=== PATIENT | female | born 1975 | race Caucasian/White ===

== ENCOUNTER 2016-06-27 18:30 | Emergency (ER) | payer OTHER ==
[2016-06-27] MEDS ORDERED: SODIUM CHLORIDE 0.9% 1,000 ML IV ONE (21:00)
[2016-06-27] MEDS ORDERED: POTASSIUM BICARB 25 MEQ TABLET PO STA (21:47)
[2016-06-27] MEDS ORDERED: POTASSIUM BICARB 25 MEQ TABLET PO ONE (21:50)
== END 2016-06-27 23:13 | disposition home or self-care (01) ==
DX: E87.6 Hypokalemia (principal); D64.9 Anemia, unspecified; R07.9 Chest pain, unspecified; R03.0 Elevated blood-pressure reading, without diagnosis of hypertension
CPT/HCPCS: 36415; 71020; 80053; 81003; 81025; 83690; 84484; 85025; 93005; 93010; 99284; 99285; A9270

== ENCOUNTER 2016-09-27 22:48 | Emergency (ER) | payer OTHER ==
[2016-09-27 23:10] LABS: BILIRUBIN,URINE NEGATIVE (NEGATIVE)
[2016-09-27 23:11] LABS: UA w/ MICROSCOPIC CHARGE YES
[2016-09-27 23:17] LABS: UR CULTURE IF IND INDICATED
--- NOTE | 2016-09-28 01:49 | ED Physician Documentation ---
PD HPI FEMALE - Stated complaint Stated Complaint: BACK PX/FEMALE - Chief complaint Chief Complaint: UTI - History obtained from History obtained from: Patient - History of Present Illness Timing - onset: Enter time (16:00), Today Timing - details: Abrupt onset Associated symptoms: Back pain. No: Fever Contributing factors: No: Similar symptoms before: Diagnosis (UTI) Recently seen: Not recently seen - Additional information Additional information: c/o urinary frequency, burning dysuria, right flank and right back pain Review of Systems Constitutional: reports: Reviewed and negative GI: denies: Abdominal Pain, Nausea, Vomiting : reports: Dysuria, Frequency. 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 - Present Medications Home Medications: Ambulatory Orders Medication Instructions Recorded Confirmed Ferrous Sulfate [Iron Supplement] 2 tab ORAL DAILY 09/18/15 09/27/16 Progesterone,Micronized 09/27/16 [Progesterone Micronized] Nitrofurantoin Monohyd/M-Cryst 100 mg PO BID #9 capsule 09/28/16 [Macrobid 100 mg Capsule] Phenazopyridine [Pyridium] 200 mg PO TID 3 Days 09/28/16 - Allergies Allergies/Adverse Reactions: Allergies Allergy/AdvReac Type Severity Reaction Status Date / Time Penicillins Allergy Hives Verified 09/27/16 22:56 - Social History Does the pt smoke?: No Smoking Status: Never smoker Does the pt drink ETOH?: Yes Does the pt have substance abuse?: No - Immunizations Immunizations are current?: Yes - POLST Patient has POLST: No PD ED PE NORMAL - Vitals Vital signs reviewed: Yes - General General: Alert and oriented X 3, No acute distress, Well developed/nourished - Abdomen Abdomen: Soft, Non tender - Back Back: No CVA TTP - Derm Derm: Normal color, Warm and dry, No rash Results - Vitals Vitals: Vital Signs - 24 hr 09/27/16 09/28/16 09/28/16 22:52 00:41 02:11 Temperature 36.5 C Heart Rate 70 63 64 Respiratory 16 17 16 Rate Blood Pressure 119/79 110/67 110/60 O2 Saturation 100 98 98 Oxygen O2 Source Room air - Labs Labs: Microbiology 09/27/16 23:00 Urine Culture - Preliminary Urine,Clean Catch No growth Laboratory Tests 09/27/16 23:00 Urine Color YELLOW Urine Clarity CLEAR Urine pH 6.0 Ur Specific [place] <=1.005 Urine Protein NEGATIVE Urine Glucose (UA) NEGATIVE Urine Ketones NEGATIVE Urine Occult Blood NEGATIVE Urine Nitrite NEGATIVE Urine Bilirubin NEGATIVE Urine Urobilinogen 0.2 (NORMAL) Ur Leukocyte Esterase SMALL H Urine RBC 0-5 Urine WBC 6-10 H Ur Squamous Epith Cells FEW Squamous Urine Bacteria Few Ur Microscopic Review INDICATED Urine Culture Comments INDICATED PD MEDICAL DECISION MAKING - ED course Complexity details: reviewed results, considered differential, d/w patient Departure - Departure Disposition: 01 Home, Self Care Clinical Impression: Urinary tract infection Condition: Good Instructions: ED UTI Cystitis Female Follow-Up: CEFERINO Carreon [Provider Group] (3-4 days if symptoms persist) Prescriptions: Nitrofurantoin Monohyd/M-Cryst [Macrobid 100 mg Capsule] 100 mg PO BID #9 capsule Phenazopyridine [Pyridium] 200 mg PO TID 3 Days Discharge Date/Time: 09/28/16 02:17
[2016-09-28] MEDS ORDERED: NITROFURANTOIN MACRO 100 MG CAPSULE PO STA (01:58)
[2016-09-28] MEDS ORDERED: PHENAZOPYRIDINE 100 MG TABLET PO STA ×2 (01:58→02:01)
[2016-09-28] MEDS ORDERED: NITROFURANTOIN MACRO 100 MG CAPSULE PO ONE (02:05)
[2016-09-28] MEDS ORDERED: PHENAZOPYRIDINE 100 MG TABLET PO ONE ×3 (02:05→02:09)
[2016-09-28 02:16] VITALS: BP 110/60
== END 2016-09-28 02:17 | disposition home or self-care (01) ==
LOC: ED 22:48
DX: N39.0 Urinary tract infection, site not specified (principal)
CPT/HCPCS: 81001; 87086; 99283; A9270; 81003

== ENCOUNTER 2017-06-07 12:33 | Outpatient (CLI) | payer OTHER ==
--- NOTE | 2017-06-07 19:07 | MRI Report ---
EXAM: MRI LUMBAR SPINE WITHOUT CONTRAST EXAM DATE: 06/07/2017 01:23 PM. CLINICAL HISTORY: Low back pain. COMPARISON: None. TECHNIQUE: Multiplanar, multisequence T1-weighted and fluid-sensitive sequences of the lumbar spine f rom T12 to S1 without contrast. Other: None. FINDINGS: Spinal Cord: The conus terminates at L1. The conus medullaris and cauda equina are unremarkable. Alignment: Mild convex left curvature in the lower lumbar spine. No spondylolisthesis. Bone Marrow: Five [id number] lumbar vertebral bodies are assumed. No gross fracture or bone lesi on. Mild to moderate diskogenic edema at L5-S1 asymmetric to the left. Disk Levels/Facets: Disk desiccation at L2-L3 and L4-L5. Disk desiccation and minimal disk height los s at L5-S1. T12-L1: Unremarkable. L1-L2: Unremarkable. L2-L3: Small central disk protrusion with focal high-intensity zone. Minimal central canal stenosis. L3-L4: Unremarkable. L4-L5: Small broad-based disk bulge. Focal high-intensity zone in the right foraminal and far lateral region. Mild bilateral facet hypertrophy with effusions. No stenosis. L5-S1: Small broad-based disk bulge with a superimposed small left paracentral disk protrusion with f ocal high-intensity zone. Mild bilateral facet hypertrophy. Disk protrusion results in mass-effect on the traversing left S1 nerve root. Mild left neural foraminal stenosis. Musculature: No edema or fatty atrophy. Other: The partially visualized retroperitoneum is unremarkable. IMPRESSION: 1. Mild degenerative disk and facet changes in the lower lumbar spine. 2. Small disk bulge with small left paracentral disk protrusion at L5-S1. Disk protrusion displaces t he traversing left S1 nerve root. Mild left neural foraminal stenosis. 3. Small central disk protrusion with focal high-intensity zone at L2-L3 results in minimal central c anal stenosis. Comment: The following findings are so common in adults without low back pain that while we report th eir presence, they must be interpreted with caution and in the context of the clinical situation. (Re sean Lee et al, Spine 2001) Prevalence of findings in patients without low back pain: Disk degeneration (any evidence): 92% Disk desiccation/T2 signal loss: 83% Disk height loss: 56% Disk bulge: 64% Disk protrusion: 32% Annular tear/high intensity zone: 38% [facility] Referring Provider Line: [phone] SITE ID: [id number]
== END 2017-06-07 12:34 | disposition home or self-care (01) ==
LOC: DI 12:33
PROVIDERS: ATTEND Nurse Practitioner Family
DX: M51.36 Other intervertebral disc degeneration, lumbar region (principal); M51.26 Other intervertebral disc displacement, lumbar region; M47.896 Other spondylosis, lumbar region; M51.27 Other intervertebral disc displacement, lumbosacral region
CPT/HCPCS: 72148

== ENCOUNTER 2017-08-19 09:55 | Emergency (ER) | payer OTHER ==
--- NOTE | 2017-08-19 10:09 | ED Physician Documentation ---
PD HPI CHEST PAIN - Stated complaint Stated Complaint: CHEST TIGHTNESS/LUMP IN THROAT - Chief complaint Chief Complaint: General - History obtained from History obtained from: Patient - History of Present Illness Timing - onset: Enter time (429), Today Timing - onset during: Sleep Timing - duration: Hours Timing - details: Abrupt onset, Still present Quality: Tightness Location: Substernal Radiation: Left upper extremity Worsened by: Other (nothing) Associated symptoms: Feeling faint / dizzy. No: Shortness of air, Diaphoresis, Nausea, Vomiting, General Weakness, Palpitations, Cough Similar symptoms before: Diagnosis (atypical chest pain last year with panic) Recently seen: Not recently seen - Additional information Additional information: 42-year-old female who is about 1-1/2 months into a divorce has awoken at 430 this morning with acute substernal chest pain. She states that she felt there was some tightness and not pain associated with this. She denies sobbing or chest wall injury. Review of Systems Constitutional: denies: Fever Eyes: denies: Decreased vision Ears: denies: Ear pain Nose: denies: Rhinorrhea / runny nose, Congestion Throat: denies: Sore throat Cardiac: reports: Chest pain / pressure. 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, Tubal ligation - Present Medications Home Medications: Ambulatory Orders Medication Instructions Recorded Confirmed Ferrous Sulfate [Iron Supplement] 2 tab ORAL DAILY 09/18/15 09/27/16 Progesterone,Micronized 09/27/16 [Progesterone Micronized] Nitrofurantoin Monohyd/M-Cryst 100 mg PO BID #9 capsule 09/28/16 [Macrobid 100 mg Capsule] Phenazopyridine [Pyridium] 200 mg PO TID 3 Days tablet 09/28/16 Lorazepam [Ativan] 1 mg PO Q6HR PRN #15 tablet 08/19/17 - Allergies Allergies/Adverse Reactions: Allergies Allergy/AdvReac Type Severity Reaction Status Date / Time Penicillins Allergy Hives Verified 09/27/16 22:56 - Social History Does the pt smoke?: No Smoking Status: Never smoker Does the pt drink ETOH?: Yes Does the pt have substance abuse?: No - Immunizations Immunizations are current?: Yes - POLST Patient has POLST: No PD ED PE NORMAL - Vitals Vital signs reviewed: Yes (hypertensive mild) - General General: Alert and oriented X 3, No acute distress, Well developed/nourished - HEENT HEENT: Atraumatic, PERRL, EOMI - Neck Neck: Supple, no meningeal sign, No bony TTP - Cardiac Cardiac: RRR, No murmur - Respiratory Respiratory: No respiratory distress, Clear bilaterally, Other (minimal chest wall tenderness) - Abdomen Abdomen: Soft, Non tender - Back Back: No CVA TTP, No spinal TTP - Derm Derm: Normal color, Warm and dry, No rash - Extremities Extremities: No deformity, No edema - Neuro Neuro: Alert and oriented X 3, 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, No motor deficit, No sensory deficit, Normal speech Eye Opening: Spontaneous Motor: Obeys Commands Verbal: Oriented GCS Score: 15 - Psych Psych: Normal mood, Normal affect Results - Vitals Vitals: Vital Signs - 24 hr 08/19/17 10:00 Temperature 36.5 C Heart Rate 79 Respiratory 18 Rate Blood Pressure 132/82 H O2 Saturation 100 Oxygen O2 Source Room air - EKG (time done) 1004 Rate: Rate (enter#) (78) Rhythm: NSR Ischemia: Normal ST segments Compare to prior EKG: Unchanged from prior EKG (06-27-16) Computer interpretation: Agree with computer - Labs Labs: Laboratory Tests 08/19/17 08/19/17 08/19/17 10:12 10:12 10:12 WBC 5.9 RBC 4.69 Hgb 12.6 Hct 38.4 MCV 81.9 MCH 26.7 L MCHC 32.7 RDW 17.0 H Plt Count 326 MPV 7.4 L Neut # (Auto) 3.9 Lymph # (Auto) 1.5 [place] # (Auto) 0.3 Eos # (Auto) 0.1 Baso # (Auto) 0.1 Absolute Nucleated RBC 0.00 Nucleated RBC % 0.1 Sodium 138 Potassium 3.4 L Chloride 103 Carbon Dioxide 29 Anion Gap 6.0 BUN 10 Creatinine 0.7 Estimated GFR (MDRD) 93 Glucose 90 Calcium 9.3 Total Bilirubin 0.5 AST 27 ALT 28 Alkaline Phosphatase 55 Troponin I < 0.04 Total Protein 7.7 Albumin 4.1 Globulin 3.6 Albumin/Globulin Ratio 1.1 Lipase 35 - Rads (name of study) 2 veiw chest Radiology: Prelim report reviewed (Impression normal two-view chest radiography. No change from 06/27/2016.), EMP read indepedently, See rad report PD MEDICAL DECISION MAKING - ED course Complexity details: reviewed results, re-evaluated patient, considered differential, d/w patient ED course: 42-year-old female with chest tightness since 4:30 in the morning has an unremarkable physical examination electrocardiogram and blood work including negative troponin and unchanged electric cardiogram. She is undergoing significant amount of stress and I suspect her chest pain is related to this. - Sepsis Event Vital Signs: Vital Signs - 24 hr 08/19/17 10:00 Temperature 36.5 C Heart Rate 79 Respiratory 18 Rate Blood Pressure 132/82 H O2 Saturation 100 Oxygen O2 Source Room air Departure - Departure Disposition: 01 Home, Self Care Clinical Impression: Atypical chest pain Condition: Stable Instructions: ED Stress React, ED Chest Pain Atypical Unkn Cause Follow-Up: BLOSSOM LEARY [Primary Care Provider] - Prescriptions: Lorazepam [Ativan] 1 mg PO Q6HR PRN #15 tablet PRN Reason: Anxiety
[2017-08-19 10:16] LABS: BASOPHILS # (AUTO) 0.1 10^3/uL (0.0-0.1); BASOPHILS % (AUTO) 1.2 %; EOSINOPHILS # (AUTO) 0.1 10^3/uL (0.0-0.7); EOSINOPHILS % (AUTO) 1.7 %; HGB - HEMOGLOBIN 12.6 g/dL (12.0-16.0); LYMPHOCYTES # (AUTO) 1.5 10^3/uL (1.5-3.5); LYMPHOCYTES % (AUTO) 25.6 %; MEAN CORPUSCULAR HEMOGLOBIN 26.7 pg (27.0-31.0); MEAN CORPUSCULAR HGB CONC 32.7 g/dL (32.0-36.0); MEAN CORPUSCULAR VOLUME 81.9 fL (81.0-99.0); MEAN PLATELET VOLUME 7.4 fL (7.9-10.8); MONOCYTES # (AUTO) 0.3 10^3/uL (0.0-1.0); MONOCYTES % (AUTO) 5.8 %; NEUTROPHILS # (AUTO) 3.9 10^3/uL (1.5-6.6); NEUTROPHILS % (AUTO) 65.7 %; PLT - PLATELET COUNT 326 10^3/uL (130-450); RED BLOOD COUNT 4.69 10^6/uL (4.20-5.40); WHITE BLOOD COUNT 5.9 x10^3/uL (4.8-10.8)
[2017-08-19 10:32] LABS: ALBUMIN 4.1 g/dL (3.2-5.5); ALBUMIN/GLOBULIN RATIO 1.1 (1.0-2.2); BILIRUBIN,TOTAL 0.5 mg/dL (0.2-1.0); CALCIUM 9.3 mg/dL (8.5-10.3); CREATININE 0.7 mg/dL (0.4-1.0); TOTAL PROTEIN 7.7 g/dL (6.7-8.2)
--- NOTE | 2017-08-19 10:56 | XRAY Report ---
EXAM: CHEST RADIOGRAPHY 2 VIEWS EXAM DATE: 08/19/2017. CLINICAL HISTORY: Chest pain. COMPARISON: 06/27/2016. TECHNIQUE: PA and lateral views. FINDINGS: Lungs/Pleura: Normal vasculature. The lungs are clear. No pleural fluid or pneumothorax. Mediastinum: Normal cardiac and mediastinal contours. Bones: Normal. IMPRESSION: Normal 2-view chest radiography. No change from 06/27/2016. [facility] Referring Provider Line: [phone] SITE ID: [id number]
[2017-08-19 11:36] VITALS: BP 111/62
== END 2017-08-19 11:49 | disposition home or self-care (01) ==
LOC: ED 09:55
DX: R07.89 Other chest pain (principal); F41.9 Anxiety disorder, unspecified
CPT/HCPCS: 36415; 71046; 80053; 83690; 84484; 85025; 93005; 99283; 99284

== ENCOUNTER 2017-08-24 11:53 | Emergency (ER) | payer OTHER ==
[2017-08-24] MEDS ORDERED: IBUPROFEN 800 MG TABLET PO STA (12:35)
--- NOTE | 2017-08-24 12:46 | ED Physician Documentation ---
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 - Present Medications Home Medications: Ambulatory Orders Medication Instructions Recorded Confirmed Ferrous Sulfate [Iron Supplement] 2 tab ORAL DAILY 09/18/15 09/27/16 Progesterone,Micronized 09/27/16 [Progesterone Micronized] Lorazepam [Ativan] 1 mg PO Q6HR PRN #15 tablet 08/19/17 - Allergies Allergies/Adverse Reactions: Allergies Allergy/AdvReac Type Severity Reaction Status Date / Time Penicillins Allergy Hives Verified 08/24/17 11:58 - Social History Does the pt smoke?: No Smoking Status: Never smoker Does the pt drink ETOH?: Yes Does the pt have substance abuse?: No - Immunizations Immunizations are current?: Yes - POLST Patient has POLST: No PD ED PE NORMAL - Vitals Vital signs reviewed: Yes - Extremities Extremities: Other (R index distal phalange swollen and tender, 10% subungal, MSV intact) Results - Vitals Vitals: Vital Signs - 24 hr 08/24/17 11:57 Temperature 36.3 C L Heart Rate 69 Respiratory 16 Rate Blood Pressure 137/80 H O2 Saturation 100 Oxygen O2 Source Room air - Rads (name of study) fingers Radiology: See rad report (no fx) PD MEDICAL DECISION MAKING - Sepsis Event Vital Signs: Vital Signs - 24 hr 08/24/17 11:57 Temperature 36.3 C L Heart Rate 69 Respiratory 16 Rate Blood Pressure 137/80 H O2 Saturation 100 Oxygen O2 Source Room air Departure - Departure Disposition: 01 Home, Self Care Clinical Impression: Crushing injury of finger of right hand Condition: Good Instructions: ED Crush Injury Finger No Fx Follow-Up: BLOSSOM LEARY [Primary Care Provider] - Comments: Thankfully there is no fracture Wear the splint for comfort Ice and elevate and take motrin to decrease the swelling
--- NOTE | 2017-08-24 13:36 | XRAY Report ---
Procedure Date: 08/24/2017 Accession Number: [id number] / [id number] Procedure: XR - Finger(s) RT CPT Code: FULL RESULT: EXAM: RIGHT SECOND DIGIT RADIOGRAPHY EXAM DATE: 08/24/2017 01:15 PM. CLINICAL HISTORY: R index finger slammed in car door. COMPARISON: None. TECHNIQUE: 3 views. FINDINGS: Bones: Normal. No fracture or bone lesion. Joints: Normal. No subluxations. Soft Tissues: Normal. No soft tissue swelling. IMPRESSION: Normal digit radiography. [facility]
[2017-08-24 14:18] VITALS: BP 135/81
== END 2017-08-24 14:26 | disposition home or self-care (01) ==
LOC: ED 11:53
DX: S67.190A Crushing injury of right index finger, initial encounter (principal); W23.0XXA Caught, crushed, jammed, or pinched between moving objects, initial encounter
CPT/HCPCS: 73140; 99282; 99283; A9270

== ENCOUNTER 2018-01-25 20:14 | Emergency (ER) | payer OTHER ==
--- NOTE | 2018-01-25 21:04 | ED Physician Documentation ---
PD HPI CHEST PAIN - Stated complaint Stated Complaint: RAPID HEART RATE/DIZZY - Chief complaint Chief Complaint: Cardiac - History obtained from History obtained from: Patient - History of Present Illness Timing - onset: Chronic Timing - duration: Years Timing - details: Gradual onset, Intermittant Pain level max: 2 Pain level now: 0 Quality: Pressure Location: Left chest Improved by: Nothing Worsened by: Other Associated symptoms: Feeling faint / dizzy (Feeling dizzy but not faint: Vertigo). No: Shortness of air, Diaphoresis, Nausea, Vomiting (Stress) Similar symptoms before: Diagnosis Recently seen: Clinic - Additional information Additional information: 42-year-old female with history of intermittent palpitations the past 10-12 years associated with chest pressure here with complaint of fast heartbeat the past few days with Throat tightness and chest pressure and Today with dizziness described as room spinning like vertigo.Patient stated had seen her primary doctor last December and evaluated and was referred to a division head but has not received any appointment from the division head. Denies any trauma, travel, recent illness. 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 Review of Systems Ten Systems: 10 systems reviewed and negative Constitutional: denies: Fever Cardiac: reports: Chest pain / pressure (Chronic and constant), Palpitations (Intermittent for many years). denies: Calf pain Respiratory: denies: Dyspnea, Cough GI: denies: Nausea Musculoskeletal: denies: Back pain Neurologic: reports: Other (Dizziness like vertigo). 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 - Present Medications Home Medications: Ambulatory Orders Medication Instructions Recorded Confirmed Ferrous Sulfate [Iron Supplement] 2 tab ORAL DAILY 09/18/15 09/27/16 Progesterone,Micronized 09/27/16 [Progesterone Micronized] Lorazepam [Ativan] 1 mg PO Q6HR PRN #15 tablet 08/19/17 - Allergies Allergies/Adverse Reactions: Allergies Allergy/AdvReac Type Severity Reaction Status Date / Time Penicillins Allergy Hives Verified 08/24/17 11:58 - Social History Does the pt smoke?: No Smoking Status: Never smoker Does the pt drink ETOH?: Yes Does the pt have substance abuse?: No - Immunizations Immunizations are current?: Yes - POLST Patient has POLST: No PD ED PE NORMAL - Vitals Vital signs reviewed: Yes - General General: Alert and oriented X 3, No acute distress, Well developed/nourished - HEENT HEENT: Moist mucous membranes - Neck Neck: Supple, no meningeal sign, No adenopathy, Thyroid normal - Cardiac Cardiac: RRR, No murmur - Respiratory Respiratory: No respiratory distress, Clear bilaterally - Abdomen Abdomen: Normal bowel sounds, Soft, Non tender, Non distended - Back Back: No CVA TTP - Derm Derm: Normal color, Warm and dry - Extremities Extremities: No deformity, No tenderness to palpate, Normal ROM s pain - Neuro Neuro: Alert and oriented X 3, Normal speech - Psych Psych: Normal mood, Normal affect Results - Vitals Vitals: Vital Signs - 24 hr 01/25/18 01/25/18 01/25/18 20:28 20:44 22:04 Temperature 36.8 C Heart Rate 92 86 78 Respiratory 18 11 L 17 Rate Blood Pressure 128/92 H 123/79 120/79 O2 Saturation 100 100 100 01/25/18 01/25/18 01/25/18 22:10 22:36 22:45 Temperature Heart Rate 88 83 82 Respiratory 17 Rate Blood Pressure 118/86 H O2 Saturation 99 99 01/25/18 23:07 Temperature Heart Rate Respiratory 16 Rate Blood Pressure O2 Saturation Oxygen O2 Source Room air - EKG (time done) 2026 Rate: Rate (enter#) Rhythm: NSR [place]: Normal Intervals: Normal CT QRS: Normal Ischemia: Normal ST segments - Labs Labs: Laboratory Tests 01/25/18 01/25/18 01/25/18 21:10 21:10 21:10 WBC 6.8 RBC 4.55 Hgb 14.5 Hct 41.7 MCV 91.6 MCH 31.9 H MCHC 34.8 RDW 13.9 Plt Count 231 MPV 7.6 L Neut # (Auto) 4.0 Lymph # (Auto) 2.1 [place] # (Auto) 0.5 Eos # (Auto) 0.1 Baso # (Auto) 0.1 Absolute Nucleated RBC 0.00 Nucleated RBC % 0.0 Sodium 140 Potassium 3.6 Chloride 104 Carbon Dioxide 28 Anion Gap 8.0 BUN 11 Creatinine 0.7 Estimated GFR (MDRD) 93 Glucose 107 H Calcium 8.8 Total Bilirubin 0.5 AST 21 ALT 20 Alkaline Phosphatase 51 Troponin I < 0.04 Total Protein 7.3 Albumin 3.8 Globulin 3.5 Albumin/Globulin Ratio 1.1 Lipase 43 TSH 01/25/18 21:10 WBC RBC Hgb Hct MCV MCH MCHC RDW Plt Count MPV Neut # (Auto) Lymph # (Auto) [place] # (Auto) Eos # (Auto) Baso # (Auto) Absolute Nucleated RBC Nucleated RBC % Sodium Potassium Chloride Carbon Dioxide Anion Gap BUN Creatinine Estimated GFR (MDRD) Glucose Calcium Total Bilirubin AST ALT Alkaline Phosphatase Troponin I Total Protein Albumin Globulin Albumin/Globulin Ratio Lipase TSH 2.40 PD MEDICAL DECISION MAKING - ED course Complexity details: reviewed results, re-evaluated patient ([id number] will dress up and ready to go. Denies any palpitation or feeling dizzy. Denies chest pain or shortness of breath. Inform of test results. Instructed to follow-up with PCP and get a cardiology referral for Holter monitor, stress test and echocardiogram. If worse return to the emergency room.), considered differential (Hyperthyroid, ACS, pneumonia, PE, stress related palpitations. ACS is unlikely, heart score 0. PE is low probability: Wells score 0), d/w patient, d/w family Departure - Departure Disposition: 01 Home, Self Care Clinical Impression: Heart palpitations, Dizziness, Vertigo Condition: Stable Instructions: ED Dizziness UKO, ED Palpitations Comments: Follow-up with your primary doctor and get a referral to a division head for outpatient stress test, Holter monitor, and echocardiogram. If worse return to the emergency room. Discharge Date/Time: 01/25/18 23:07
[2018-01-25 21:17] LABS: BASOPHILS # (AUTO) 0.1 10^3/uL (0.0-0.1); BASOPHILS % (AUTO) 1.1 %; EOSINOPHILS # (AUTO) 0.1 10^3/uL (0.0-0.7); EOSINOPHILS % (AUTO) 1.4 %; HGB - HEMOGLOBIN 14.5 g/dL (12.0-16.0); LYMPHOCYTES # (AUTO) 2.1 10^3/uL (1.5-3.5); LYMPHOCYTES % (AUTO) 30.5 %; MEAN CORPUSCULAR HEMOGLOBIN 31.9 pg (27.0-31.0); MEAN CORPUSCULAR HGB CONC 34.8 g/dL (32.0-36.0); MEAN CORPUSCULAR VOLUME 91.6 fL (81.0-99.0); MEAN PLATELET VOLUME 7.6 fL (7.9-10.8); MONOCYTES # (AUTO) 0.5 10^3/uL (0.0-1.0); MONOCYTES % (AUTO) 7.8 %; NEUTROPHILS % (AUTO) 59.2 %; PLT - PLATELET COUNT 231 10^3/uL (130-450); RED BLOOD COUNT 4.55 10^6/uL (4.20-5.40); RED CELL DISTRIBUTION WIDTH 13.9 % (12.0-15.0); WHITE BLOOD COUNT 6.8 x10^3/uL (4.8-10.8)
[2018-01-25 21:29] LABS: ALBUMIN 3.8 g/dL (3.2-5.5); ALBUMIN/GLOBULIN RATIO 1.1 (1.0-2.2); BILIRUBIN,TOTAL 0.5 mg/dL (0.2-1.0); CALCIUM 8.8 mg/dL (8.5-10.3); CREATININE 0.7 mg/dL (0.4-1.0); TOTAL PROTEIN 7.3 g/dL (6.7-8.2)
--- NOTE | 2018-01-25 21:35 | XRAY Report ---
Reason: chest pain Procedure Date: 01/25/2018 Accession Number: [id number] / [id number] Procedure: XR - Chest 1 View X-Ray CPT Code: 99538 FULL RESULT: EXAM: CHEST RADIOGRAPHY EXAM DATE: 01/25/2018 09:11 PM. CLINICAL HISTORY: Chest pain. COMPARISON: CHEST 2 VIEW 08/19/2017 10:22 AM. TECHNIQUE: 1 view. FINDINGS: Lungs/Pleura: No focal opacities evident. No pleural effusion. No pneumothorax. Mediastinum: Within exam limitations, the cardiomediastinal contour is normal. Other: None. IMPRESSION: Normal single view chest. [facility]
[2018-01-25 23:00] VITALS: BP 118/86
== END 2018-01-25 23:07 | disposition home or self-care (01) ==
LOC: ED 20:14
DX: R00.2 Palpitations (principal); R42 Dizziness and giddiness
CPT/HCPCS: 36415; 71045; 80053; 83690; 84443; 84484; 85025; 93005; 99283; 99284

== ENCOUNTER 2018-08-24 08:25 | Outpatient (CLI) | payer OTHER ==
--- NOTE | 2018-08-24 18:59 | Ultrasound Report ---
Reason: RUQ PAIN Procedure Date: 08/24/2018 Accession Number: [id number] / [id number] Procedure: US - Abdomen Limited CPT Code: FULL RESULT: EXAM: ABDOMEN ULTRASOUND LIMITED, RIGHT UPPER QUADRANT. EXAM DATE: 08/24/2018 08:54 AM. CLINICAL HISTORY: Right upper quadrant pain for 2 months. COMPARISON: None. TECHNIQUE: Real-time scanning was performed with static images obtained. FINDINGS: Liver: Normal in size . Hyperechoic echotexture. 14.2 cm. Main portal vein flow: Hepatopetal. Gallbladder: Normal. No stones, wall thickening, or sonographic Mora's sign. Biliary System: CBD measures 2 mm. No intrahepatic or extrahepatic ductal dilatation. Other: The visualized pancreas is unremarkable. Mild right pelvocaliectasis. No free fluid. IMPRESSION: 1. Unremarkable gallbladder and ducts. 2. Hepatic steatosis. 3. Mild right pelvocaliectasis noted. [facility]
== END 2018-08-24 08:26 | disposition home or self-care (01) ==
LOC: DI 08:25
PROVIDERS: ATTEND Physician Assistant
DX: R10.11 Right upper quadrant pain (principal); K76.0 Fatty (change of) liver, not elsewhere classified; N13.30 Unspecified hydronephrosis
CPT/HCPCS: 76705

== ENCOUNTER 2018-09-01 08:12 | Outpatient (CLI) | payer OTHER ==
[2018-09-01 12:14] LABS: BASOPHILS # (AUTO) 0.1 10^3/uL (0.0-0.1); BASOPHILS % (AUTO) 1.1 %; EOSINOPHILS # (AUTO) 0.1 10^3/uL (0.0-0.7); HGB - HEMOGLOBIN 10.7 g/dL (12.0-16.0); LYMPHOCYTES # (AUTO) 1.4 10^3/uL (1.5-3.5); MEAN CORPUSCULAR HEMOGLOBIN 24.4 pg (27.0-31.0); MEAN CORPUSCULAR HGB CONC 29.6 g/dL (32.0-36.0); MEAN CORPUSCULAR VOLUME 82.2 fL (81.0-99.0); MONOCYTES # (AUTO) 0.3 10^3/uL (0.0-1.0); MONOCYTES % (AUTO) 7.1 %; NEUTROPHILS # (AUTO) 2.7 10^3/uL (1.5-6.6); NEUTROPHILS % (AUTO) 59.6 %; PLT - PLATELET COUNT 348 10^3/uL (130-450); RED BLOOD COUNT 4.39 10^6/uL (4.20-5.40); RED CELL DISTRIBUTION WIDTH 14.3 % (12.0-15.0); WHITE BLOOD COUNT 4.5 x10^3/uL (4.8-10.8)
[2018-09-01 12:32] LABS: HB2 TOTAL 11.1 g/dL; HEMOGLOBIN A1C 0.42 g/dL; HEMOGLOBIN A1C % 5.6 % (4.6-6.2)
[2018-09-01 12:50] LABS: ALBUMIN 3.7 g/dL (3.2-5.5); ALBUMIN/GLOBULIN RATIO 1.2 (1.0-2.2); ALKALINE PHOSPHATASE 52 IU/L (42-121); ALT ALANINE AMINOTRANSFERASE 20 IU/L (10-60); AST ASPARTATE AMINOTRANSFERASE 20 IU/L (10-42); BILIRUBIN,TOTAL 0.5 mg/dL (0.2-1.0); BUN - BLOOD UREA NITROGEN 9 mg/dL (6-20); CALCIUM 8.8 mg/dL (8.5-10.3); CARBON DIOXIDE - CO2 27 mmol/L (21-32); CHLORIDE 105 mmol/L (101-111); CHOL/HDL RATIO 4.1 (<4.4); CHOLESTEROL 178 mg/dL; CREATININE 0.7 mg/dL (0.4-1.0); GFR - MDRD 92 (>89); GLUCOSE 101 mg/dL (70-100); HDL CHOLESTEROL 43 mg/dL; LDL CHOLESTEROL,CALCULATED 113 mg/dL; LDL/HDL RATIO 2.6 (<4.4); SODIUM 139 mmol/L (135-145); TOTAL PROTEIN 6.9 g/dL (6.7-8.2); VLDL CHOLESTEROL 22 mg/dL
[2018-09-02 15:10] LABS: % IRON SATURATION 4 % (20-50); IRON 15 ug/dL (28-170); TOTAL IRON BINDING CAPACITY 403 ug/dL (250-450); TRANSFERRIN 288 mg/dL (192-382)
== END 2018-09-01 08:13 | disposition home or self-care (01) ==
LOC: LAB.WCP 08:12
PROVIDERS: ATTEND Physician Assistant
DX: Z00.00 Encounter for general adult medical examination without abnormal findings (principal); Z13.220 Encounter for screening for lipoid disorders; Z13.1 Encounter for screening for diabetes mellitus; Z13.29 Encounter for screening for other suspected endocrine disorder; R68.89 Other general symptoms and signs
CPT/HCPCS: 36415; 80053; 80061; 83036; 83540; 83721; 84443; 84466; 85025

== ENCOUNTER 2018-09-12 14:15 | Outpatient (CLI) | payer OTHER ==
[2018-09-12] MEDS ORDERED: IOVERSOL 320 100 ML VIAL IVP ONE ×2 (14:56→15:36)
[2018-09-12] MEDS ORDERED: IOVERSOL 320 50 ML VIAL ONE (14:56)
[2018-09-12] MEDS ORDERED: IOVERSOL 320 50 ML VIAL PO ONE (15:36)
--- NOTE | 2018-09-15 11:07 | CT Report ---
Reason: ABDOMINAL PAIN Procedure Date: 09/12/2018 Accession Number: [id number] / [id number] Procedure: CT - Abdomen/Pelvis W CPT Code: FULL RESULT: EXAM: CT ABDOMEN AND PELVIS EXAM DATE: 09/12/2018 03:38 PM. CLINICAL HISTORY: Abdominal pain. COMPARISONS: ABDOMEN LIMITED 08/24/2018. TECHNIQUE: Routine helical CT imaging was performed through the abdomen and pelvis. IV contrast: OPTI 320, 90 mL. Enteric contrast: Yes. Reconstructions: Coronal and sagittal. In accordance with CT protocol optimization, one or more of the following dose reduction techniques were utilized for this exam: automated exposure control, adjustment of mA and/or KV based on patient size, or use of iterative reconstructive technique. FINDINGS: Lung Bases: Unremarkable. Liver: Normal. No masses. Gallbladder/Bile Ducts: Unremarkable. Spleen: Normal. Pancreas: Normal. Adrenal Glands: Normal. Kidneys: Normal. No masses or hydronephrosis. Peritoneal Cavity/Bowel: Normal. No free fluid, free air or adenopathy. No masses or acute inflammatory process. There are multiple diverticula seen which most severely affect the sigmoid colon. No wall thickening or adjacent inflammation seen. No obstruction noted. Appendix not seen. No right lower quadrant inflammation. Remaining stomach, small bowel and large bowel are normal. Pelvic Organs: Low-density 1.3 cm right ovarian cyst on image 3, 62 and 5, 34. Otherwise, the bladder and visualized pelvic organs are within normal limits. No collections, ascites or adenopathy. Vasculature: No aneurysms or other significant abnormality. Bones: No significant abnormality. Other: None. IMPRESSION: 1. Diverticulosis. Appendix not seen. No inflammatory changes or obstruction. 2. No acute abnormality in abdomen or pelvis. [facility]
== END 2018-09-12 14:16 | disposition home or self-care (01) ==
LOC: DI 14:15
PROVIDERS: ATTEND Physician Assistant
DX: R10.9 Unspecified abdominal pain (principal); K57.30 Diverticulosis of large intestine without perforation or abscess without bleeding
CPT/HCPCS: 74177; Q9967

== ENCOUNTER 2020-02-12 07:00 | Outpatient (CLI) | payer OTHER | END 2020-02-12 23:59 | disposition home or self-care (01) | LOC: COV 07:00 | PROVIDERS: ATTEND Family Medicine | DX: R06.02 Shortness of breath (principal); R09.81 Nasal congestion; Z20.828 Contact with and (suspected) exposure to other viral communicable diseases ==